=== PATIENT | female | born 1975 | race Caucasian/White ===

== ENCOUNTER 2017-07-14 09:49 | Emergency (ER) | payer OTHER, MEDICAID ==
[2017-07-14 10:29] LABS: Basophils % (Auto) 0.6 % (0.0-1.8); Eosinophils # (Auto) 0.2 K/mm3 (0.0-0.4); Eosinophils % (Auto) 2.2 % (0.0-4.3); Hematocrit 39.3 % (30.3-42.9); Hemoglobin 13.2 gm/dl (10.1-14.3); Lymphocytes # (Auto) 2.2 K/mm3 (1.2-5.4); Lymphocytes % (Auto) 32.2 % (13.4-35.0); Mean Corpuscular HGB Conc 34 % (30-34); Mean Corpuscular Hemoglobin 28 pg (28-32); Mean Corpuscular Volume 84 fl (79-97); Monocytes # (Auto) 0.4 K/mm3 (0.0-0.8); Monocytes % (Auto) 5.7 % (0.0-7.3); Platelet Count 235 K/mm3 (140-440); Red Blood Count 4.69 M/mm3 (3.65-5.03); Red Cell Distribution Width 13.8 % (13.2-15.2)
[2017-07-14 10:46] LABS: Bilirubin,Urine NEG (Negative); Blood,Urine LG (Negative); Color,Urine Red (Yellow); Protein,Urine <15 mg/dL mg/dL (Negative); Urobilinogen,Urine < 2.0 mg/dL (<2.0)
--- NOTE | 2017-07-14 12:45 | Ultrasound Report ---
FINAL REPORT EXAM: US OB < = 14 WEEKS FETUS HISTORY: vaginal bleedign with 6 weeks TECHNIQUE: Transabdominal and transvaginal OB ultrasound. PRIORS: None currently available. FINDINGS: Single intrauterine dates 6.1 weeks by crown rump length and mean sac diameter. ISABEL equals March 08, 2018. heart rate: 99 BPM. Uterus: 8.8 x 4.7 x 7.1 cm. Heterogeneous. Gestational sac, yolk sac, and pole identified. Mean sac diameter equals 14 mm. [place] rump length measures 3 mm. No subchorionic bleed. Right ovary: 1.8 x 0.8 x 3.2 cm. Within normal limits. Left Ovary: 1.9 x 1.3 x 1.6 cm. Complex cystic lesion measures 1.3 cm. Adnexal: Unremarkable. No free fluid. IMPRESSION: Single live intrauterine . Suspect corpus luteal cyst in the left ovary.
--- NOTE | 2017-07-14 12:45 | Ultrasound Report ---
FINAL REPORT EXAM: US OB TRANSVAGINAL HISTORY: vaginal bleedign with 6 weeks TECHNIQUE: Transabdominal and transvaginal OB ultrasound. PRIORS: None currently available. FINDINGS: Single intrauterine dates 6.1 weeks by crown rump length and mean sac diameter. ISABEL equals March 08, 2018. heart rate: 99 BPM. Uterus: 8.8 x 4.7 x 7.1 cm. Heterogeneous. Gestational sac, yolk sac, and pole identified. Mean sac diameter equals 14 mm. [place] rump length measures 3 mm. No subchorionic bleed. Right ovary: 1.8 x 0.8 x 3.2 cm. Within normal limits. Left Ovary: 1.9 x 1.3 x 1.6 cm. Complex cystic lesion measures 1.3 cm. Adnexal: Unremarkable. No free fluid. IMPRESSION: Single live intrauterine . Suspect corpus luteal cyst in the left ovary.
--- NOTE | 2017-07-14 17:01 | Emergency Department Report ---
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 It is slight, nontraumatic, constant, does not radiate anywhere, and has no exacerbating or relieving factors. Denies headache, neck pain, chest pain, abdominal pain, urinary symptoms, recent sexual activity. MD Complaint: vaginal bleeding -: Sudden Severity: mild Consistency: constant Improves with: none Worsens with: none Are you Now?: Yes Associated Symptoms: denies other symptoms, vaginal bleeding. denies: vaginal discharge, abdominal pain, nausea/vomiting, fever/chills, headaches, loss of appetite, dysuria, hematuria, rash, seizure, shortness of breath, syncope, weakness - Related Data Sexually active: Yes Previous Rx's Medication Instructions Recorded Last Taken Type Ibuprofen [Motrin 600 MG tab] 600 mg PO Q6H PRN #60 tablet 01/15/13 Unknown Rx Vit-Fe Fumar-FA [ 1 each PO QDAY #30 tablet 01/15/13 12/04/14 09:00 Rx Vitamin] oxyCODONE /ACETAMINOPHEN [Percocet 1 tab PO Q6H PRN #30 tablet 01/15/13 Unknown Rx 5/325 mg] Ibuprofen [Motrin 800 MG tab] 800 mg PO TID PRN #30 tablet 12/05/14 Unknown Rx oxyCODONE /ACETAMINOPHEN [Percocet 1 tab PO Q4HR #30 tablet 12/05/14 Unknown Rx 5/325 mg] Doxylamine Succinate/Vit B6 1 each PO QHS PRN #30 taisha. 07/14/17 Unknown Rx [Saulo Enamorado 10-10 mg Tablet] Vit Calc,Iron,Folic 1 each PO QDAY #30 tablet 07/14/17 Unknown Rx [ Vitamins] Allergies Allergy/AdvReac Type Severity Reaction Status Date / Time No Known Allergies Allergy Unverified 01/13/13 08:30 ED Review of Systems ROS: Stated complaint: VAGINAL BLEEDING Other details as noted in HPI Comment: All other systems reviewed and negative ED Past Medical Hx - Past Medical History Previous Medical History?: Yes Hx Hypertension: No Hx Heart Attack/AMI: No Hx Congestive Heart Failure: No Hx Diabetes: Yes (Gestational Diabetes) Hx Deep Vein Thrombosis: No Hx Liver Disease: No Hx Renal Disease: No Hx Sickle Cell Disease: No Hx Seizures: No Hx Asthma: No Hx COPD: No Hx HIV: No - Surgical History Past Surgical History?: Yes Additional Surgical History: 12-05-2014 - Social History Smoking Status: Never Smoker Substance Use Type: Prescribed - Medications Home Medications: Home Medications Medication Instructions Recorded Confirmed Last Taken Type Ibuprofen [Motrin 600 MG tab] 600 mg PO Q6H PRN #60 tablet 01/15/13 12/05/14 Unknown Rx Vit-Fe Fumar-FA [ 1 each PO QDAY #30 tablet 01/15/13 12/05/14 12/04/14 09:00 Rx Vitamin] oxyCODONE /ACETAMINOPHEN [Percocet 1 tab PO Q6H PRN #30 tablet 01/15/13 Unknown Rx 5/325 mg] Ibuprofen [Motrin 800 MG tab] 800 mg PO TID PRN #30 tablet 12/05/14 Unknown Rx oxyCODONE /ACETAMINOPHEN [Percocet 1 tab PO Q4HR #30 tablet 12/05/14 Unknown Rx 5/325 mg] Doxylamine Succinate/Vit B6 1 each PO QHS PRN #30 tablet. 07/14/17 Unknown Rx [Saulo Enamorado 10-10 mg Tablet] Vit Calc,Iron,Folic 1 each PO QDAY #30 tablet 07/14/17 Unknown Rx [ Vitamins] ED Physical Exam - General Limitations: No Limitations General appearance: alert, in no apparent distress - Head Head exam: Present: atraumatic, normocephalic - Eye Eye exam: Present: normal appearance, EOMI. Absent: nystagmus - ENT ENT exam: Present: normal exam, normal orophraynx, mucous membranes moist, normal external ear exam - Neck Neck exam: Present: normal inspection, full ROM - Respiratory Respiratory exam: Present: normal lung sounds bilaterally. Absent: respiratory distress - Cardiovascular Cardiovascular Exam: Present: regular rate, normal rhythm, normal heart sounds. Absent: systolic murmur, diastolic murmur, rubs, gallop - GI/Abdominal GI/Abdominal exam: Present: soft, normal bowel sounds. 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 Absent: cervical motion tendernes, adnexal tenderness, adnexal mass - Extremities Exam Extremities exam: Present: normal inspection, full ROM, normal capillary refill. Absent: pedal edema, joint swelling, calf tenderness - Back Exam Back exam: Present: normal inspection, full ROM. Absent: tenderness, CVA tenderness (R), paraspinal tenderness, vertebral tenderness - Neurological Exam Neurological exam: Present: alert, CN II-XII intact, normal gait, other ( Extraocular movements intact. Tongue midline. No facial droop. Facial sensation intact to light touch in the V1, V2, V3 distribution bilaterally. 5 and 5 strength in 4 extremities.. Sensation is intact to light touch in 4 extremities.). Absent: motor sensory deficit - Psychiatric Psychiatric exam: Present: normal affect, normal mood - Skin Skin exam: Present: warm, dry, intact, normal color. Absent: rash ED Course Vital Signs 07/14/17 09:55 Temperature 97.8 F Pulse Rate 72 Respiratory 18 Rate Blood Pressure 114/65 O2 Sat by Pulse 98 Oximetry ED Medical Decision Making - Lab Data Result diagrams: 07/14/17 10:11 Vital Signs 07/14/17 09:55 Temperature 97.8 F Pulse Rate 72 Respiratory 18 Rate Blood Pressure 114/65 O2 Sat by Pulse 98 Oximetry Lab Results 07/14/17 07/14/17 07/14/17 Range/Units 10:11 10:11 10:11 WBC 6.9 (4.5-11.0) K/mm3 RBC 4.69 (3.65-5.03) M/mm3 Hgb 13.2 (10.1-14.3) gm/dl Hct 39.3 (30.3-42.9) % MCV 84 (79-97) fl MCH 28 (28-32) pg MCHC 34 (30-34) % RDW 13.8 (13.2-15.2) % Plt Count 235 (140-440) K/mm3 Lymph % (Auto) 32.2 (13.4-35.0) % [place] % (Auto) 5.7 (0.0-7.3) % Eos % (Auto) 2.2 (0.0-4.3) % Baso % (Auto) 0.6 (0.0-1.8) % Lymph # 2.2 (1.2-5.4) K/mm3 [place] # 0.4 (0.0-0.8) K/mm3 Eos # 0.2 (0.0-0.4) K/mm3 Baso # 0.0 (0.0-0.1) K/mm3 Seg Neutrophils % 59.3 (40.0-70.0) % Seg Neutrophils # 4.1 (1.8-7.7) K/mm3 HCG, Quant 5174 H (0-4) mIU/mL Urine Color (Yellow) Urine Turbidity (Clear) Urine pH (5.0-7.0) Ur Specific [place] (1.003-1.030) Urine Protein (Negative) mg/dL Urine Glucose (UA) (Negative) mg/dL Urine Ketones (Negative) mg/dL Urine Blood (Negative) Urine Nitrite (Negative) Urine Bilirubin (Negative) Urine Urobilinogen (<2.0) mg/dL Ur Leukocyte Esterase (Negative) Urine WBC (Auto) (0.0-6.0) /HPF Urine RBC (Auto) (0.0-6.0) /HPF U Epithel Cells (Auto) (0-13.0) /HPF Blood Type O POSITIVE Antibody Screen Negative 07/14/17 Range/Units 10:16 WBC (4.5-11.0) K/mm3 RBC (3.65-5.03) M/mm3 Hgb (10.1-14.3) gm/dl Hct (30.3-42.9) % MCV (79-97) fl MCH (28-32) pg MCHC (30-34) % RDW (13.2-15.2) % Plt Count (140-440) K/mm3 Lymph % (Auto) (13.4-35.0) % [place] % (Auto) (0.0-7.3) % Eos % (Auto) (0.0-4.3) % Baso % (Auto) (0.0-1.8) % Lymph # (1.2-5.4) K/mm3 [place] # (0.0-0.8) K/mm3 Eos # (0.0-0.4) K/mm3 Baso # (0.0-0.1) K/mm3 Seg Neutrophils % (40.0-70.0) % Seg Neutrophils # (1.8-7.7) K/mm3 HCG, Quant (0-4) mIU/mL Urine Color Red (Yellow) Urine Turbidity Clear (Clear) Urine pH 6.0 (5.0-7.0) Ur Specific [place] 1.014 (1.003-1.030) Urine Protein <15 mg/dl (Negative) mg/dL Urine Glucose (UA) Neg (Negative) mg/dL Urine Ketones Neg (Negative) mg/dL Urine Blood Lg (Negative) Urine Nitrite Neg (Negative) Urine Bilirubin Neg (Negative) Urine Urobilinogen < 2.0 (<2.0) mg/dL Ur Leukocyte Esterase Neg (Negative) Urine WBC (Auto) 2.0 (0.0-6.0) /HPF Urine RBC (Auto) 2.0 (0.0-6.0) /HPF U Epithel Cells (Auto) 4.0 (0-13.0) /HPF Blood Type Antibody Screen - Radiology Data Radiology results: report reviewed, image reviewed Obstetrics ultrasound, read by radiology: Demonstrates intrauterine - Medical Decision Making Differential diagnosis, including but not limited to: Miscarriage, ectopic , urinary tract infection Assessment and plan: 42-year-old female, Rh+, hemodynamically stable, hemoglobin , hematocrit appropriate, ultrasound shows 6 week intrauterine , history, physical, presentation suggestive of a threatened miscarriAge. patient will be managed expectantly, she is going to follow up with her paper cone machine operator on Friday, she is hemodynamically stable at this time, bleeding minimally on exam, and is suitable for outpatient management Critical care attestation.: If time is entered above; I have spent that time in minutes in the direct care of this critically ill patient, excluding procedure time. ED Disposition Clinical Impression: Threatened miscarriage Disposition: TO HOME OR SELFCARE Is pt being admited?: No Does the pt Need Aspirin: No Condition: Good Instructions: Threatened Miscarriage (ED) Additional Instructions: Cultures was sent today, and results will be available within the next 3-5 days. Have your paper cone machine operator contact the medical records department to obtain culture results. Rest, and avoid heavy lifting and did not have sex until cleared by her paper cone machine operator. Follow-up as scheduled with her paper cone machine operator on Friday. Return to the ER right away with any pain, worsened pain, migration of pain, weakness, numbness, confusion, projectile vomiting, change in mental status, bleeding within to peds so, lightheadedness, chest pain or shortness of breath. Cc n?n v?n ho ?c g?i ?i ngy hm nay v k?t qu? s?c cung c?p william vng 3-5 ngy ti?p lu. Bc s? ph? nora c?a b?n sneha h? v?i phng l?u tr? h? s ? y t? ?? c k?t qu? nui c?y. Ngh? ng?i, v trnh nng n?ng v khng harper h? tnh d?c cho ??n khi ???c bc s? ph? nora gi?i phng. Ti?p lu lu k? ho?ch v? i bc s? ph? nora c?a c vo th? T?. Tr? l?i phng c?p c?u ngay l?p t?c v?i b?t k? c?n ?au, ?au ??n, di richard?n ?au, nancy nh??c, t, nh?m l?n, nn m?a, thay ??i tr?ng thi haley th?n, ch?y mu william khoang, lng lng, ?au ng?c ho?c h?t ??h?i. Prescriptions: Doxylamine Succinate/Vit B6 [Saulo Enamorado 10-10 mg Tablet] 1 each PO QHS PRN #30 tablet. PRN Reason: Nausea Vit Calc,Iron,Folic [ Vitamins] 1 each PO QDAY #30 tablet Referrals: PRIMARY CARE, [Primary Care Provider] - 3-5 Days [facility] [Provider Group] - 3-5 Days [facility] [Provider Group] - 3-5 Days [facility] [Provider Group] - 3-5 Days
[2017-07-14 18:10] VITALS: BP 120/61
== END 2017-07-14 17:45 | disposition home or self-care (01) ==
LOC: ED 09:49
DX: O20.0 Threatened abortion (principal); Z3A.01 Less than 8 weeks gestation of pregnancy
CPT/HCPCS: 36415; 76801; 76817; 81001; 84702; 85025; 86850; 86900; 86901; 87210; 87591; 99284

== ENCOUNTER 2017-07-31 08:41 | Day surgery (SDC) | payer OTHER, MEDICAID ==
[2017-07-31] MEDS ORDERED: NACL BACTERIOSTATIC INFILTRATI ONE (10:04)
[2017-07-31] MEDS ORDERED: DIPRIVAN 10 MG/ML IV ONE (10:47)
[2017-07-31] MEDS ORDERED: XYLOCAINE MPF 2% ONE (10:47)
--- NOTE | 2017-07-31 10:47 | Anesthesia Consultation ---
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 Korean speaking ( some montserratian) request sister at bedside for translation help if needed
--- NOTE | 2017-07-31 10:49 | Anesthesia Day of Surgery ---
Anesthesia Day of Surgery - Day of Surgery Patient Examined: Yes Patient H&P Reviewed: Yes Patient is NPO: Yes
[2017-07-31] MEDS ORDERED: PEPCID IV NR (11:00)
[2017-07-31 11:05] LABS: Basophils % (Auto) 0.4 % (0.0-1.8); Eosinophils # (Auto) 0.1 K/mm3 (0.0-0.4); Eosinophils % (Auto) 1.8 % (0.0-4.3); Hematocrit 36.6 % (30.3-42.9); Hemoglobin 12.3 gm/dl (10.1-14.3); Lymphocytes # (Auto) 2.8 K/mm3 (1.2-5.4); Mean Corpuscular HGB Conc 34 % (30-34); Mean Corpuscular Hemoglobin 28 pg (28-32); Mean Corpuscular Volume 84 fl (79-97); Monocytes # (Auto) 0.4 K/mm3 (0.0-0.8); Monocytes % (Auto) 6.7 % (0.0-7.3); Platelet Count 230 K/mm3 (140-440); Red Blood Count 4.35 M/mm3 (3.65-5.03); Red Cell Distribution Width 13.7 % (13.2-15.2)
[2017-07-31] MEDS ORDERED: ZOFRAN IV PRN (11:06)
[2017-07-31] MEDS ORDERED: DILAUDID IV PRN (11:06)
[2017-07-31] MEDS ORDERED: TORADOL IV PRN (11:06)
[2017-07-31] MEDS ORDERED: NACL 0.9% IR ONE (11:32)
[2017-07-31] MEDS ORDERED: ZOFRAN ONE (11:59)
[2017-07-31] MEDS ORDERED: TORADOL ONE (12:00)
[2017-07-31] MEDS ORDERED: VERSED IV NR (12:00)
[2017-07-31] MEDS ORDERED: NACL 0.9% 1000 ML 1,000 ML IV SCH (12:00)
[2017-07-31] MEDS ORDERED: SILVER NITRATE TP ONE ×3 (12:05→12:08)
--- NOTE | 2017-07-31 12:25 | Operative Report ---
Operative Report Operative Report: DATE OF PROCEDURE: 07/31/17 PREOPERATIVE DIAGNOSIS: Six-week missed . POSTOPERATIVE DIAGNOSIS: Six-week missed . PROCEDURE PERFORMED: Suction dilation and curettage. SURGEON: Maureen High MD SEDATION: General with endotracheal tube. COMPLICATIONS: None. ESTIMATED BLOOD LOSS: Minimal. FINDINGS: Small amount of products of conception. DESCRIPTION OF PROCEDURE: The patient was taken to the operating room where general anesthesia was performed without difficulty. She was prepped and draped in normal sterile fashion in dorsal lithotomy position. [place] speculum was placed in the patients vagina. The anterior lip of the cervix was grasped with uterine forceps. Uterus was dilated to 7 [place] dilator, sounded to 8 cm, and then #7 curved suction curette was placed gently into the fundus. The suction machine was turned on and two passes of the suction curette were used to clear the uterus. Sharp curettage was used to confirm that the uterus was empty, and the edges were gritty in all four quadrants. The suction curette was placed one more time to suction any products that were scraped off with the sharp curette. Once this was accomplished, the procedure was terminated. All instruments were removed from the patients vagina. The patient was allowed to wake up and went to the recovery room awake, alert, and oriented x4, in stable condition. There was minimal blood loss.
--- NOTE | 2017-07-31 15:39 | Post Anesthesia Evaluation ---
- Post Anesthesia Evaluation Patient Participated: Yes Airway Patent: Yes Stable Respiratory Function: Yes Nausea/Vomiting: No Temp > 96.8F: Yes Pain Manageable: Yes
[2017-07-31 16:47] VITALS: BP 111/75
== END 2017-07-31 14:23 | disposition home or self-care (01) ==
LOC: OR 08:41
PROVIDERS: ATTEND Obstetrics & Gynecology
DX: O02.1 Missed abortion (principal)
CPT/HCPCS: 36415; 59820; 85025; 86850; 86900; 86901; 88305; J1885; J2250; J2405; J2704; J7030